=== PATIENT | male | born 1990 | race Caucasian/White ===

== ENCOUNTER 2021-02-09 02:43 | Observation (INO) | payer OTHER ==
[2021-02-09] MEDS ORDERED: Ondansetron PF 4 MG/2 ML Vial ONE ×2 (03:57→13:32)
[2021-02-09] MEDS ORDERED: Morphine 4 MG/ML VIAL ONE ×3 (03:57→09:48)
[2021-02-09 07:18] VITALS: BMI 30.3
[2021-02-09] MEDS ORDERED: Morphine 2 MG/ML VIAL SLOW IVP PRN (08:39)
[2021-02-09] MEDS ORDERED: Morphine 4 MG/ML VIAL SLOW IVP PRN (08:39)
[2021-02-09] MEDS ORDERED: Ondansetron PF 4 MG/2 ML Vial IVP PRN (08:40)
[2021-02-09] MEDS ORDERED: Acetaminophen 325 MG TAB PO PRN (08:40)
[2021-02-09] MEDS ORDERED: Ondansetron ODT 4 MG TAB PO PRN (08:40)
[2021-02-09] MEDS ORDERED: Piperacillin/Tazobactam 3.375 GM in Sodium Chloride 0.9% 100 ML IVPB SCH ×2 (11:45→17:00)
[2021-02-09] MEDS ORDERED: Ketorolac Tromethamine 30 MG/ML VIAL IVP SCH (11:45)
[2021-02-09] MEDS ORDERED: Sodium Chloride 0.9% 1,000 ML IV SCH (11:45)
[2021-02-09] MEDS ORDERED: Scopolamine 1.5 mg/72 hour Patch TOP SCH (12:00)
[2021-02-09] MEDS ORDERED: Piperacillin/Tazobactam 3.375 GM VIAL ONE (12:19)
[2021-02-09] MEDS ORDERED: Ketorolac Tromethamine 30 MG/ML VIAL ONE ×2 (12:19→13:32)
[2021-02-09] MEDS ORDERED: Fentanyl 100 MCG/2 ML VIAL ONE ×2 (12:32→14:05)
[2021-02-09] MEDS ORDERED: Midazolam HCl 2 mg/2 ml Vial ONE (12:32)
[2021-02-09] MEDS ORDERED: Nicotine 14 MG PATCH ONE (12:38)
[2021-02-09] MEDS ORDERED: SUGAMMADEX SODIUM 200 MG/2 ML VIAL ONE (12:40)
[2021-02-09] MEDS ORDERED: EPINEPHrine 1 MG/ML AMP ONE (12:41)
[2021-02-09] MEDS ORDERED: Bupivacaine PF 0.5% 30 ML VIAL ONE (12:41)
[2021-02-09] MEDS ORDERED: Succinylcholine 200 MG/10 ml SYRINGE FS ONE (13:32)
[2021-02-09] MEDS ORDERED: Rocuronium Bromide 10 MG/ML (10ML VIAL) ONE (13:32)
[2021-02-09] MEDS ORDERED: Lidocaine 2% PF 5 ML VIAL ONE (13:32)
[2021-02-09] MEDS ORDERED: PROPOFOL 200 MG/20 ML VIAL ONE (13:32)
[2021-02-09] MEDS ORDERED: Dexamethasone 20 MG/5 ML VIAL ONE (13:32)
[2021-02-09] MEDS ORDERED: diphenhydrAMINE 50 MG/ML VIAL ONE (13:32)
[2021-02-09] MEDS ORDERED: Scopolamine 1.5 mg/72 hour Patch ONE (13:44)
[2021-02-09] MEDS ORDERED: Nicotine 14 MG PATCH TD SCH (14:30)
[2021-02-09] MEDS ORDERED: HYDROcodone/Acetaminophen 5/325 mg Tablet ONE (16:08)
== END 2021-02-09 17:15 | disposition home or self-care (01) ==
LOC: ERS 02:43 → ERHOLD 03:30
PROVIDERS: ADMIT Student in an Organized Health Care Education/Training Program; ATTEND Student in an Organized Health Care Education/Training Program
PROC: 0DTJ4ZZ Resection of Appendix, Percutaneous Endoscopic Approach (ICD-10-PCS; principal; 2021-02-09)
DX: K35.30 Acute appendicitis with localized peritonitis, without perforation or gangrene (principal); K38.8 Other specified diseases of appendix; U07.1 COVID-19; F17.290 Nicotine dependence, other tobacco product, uncomplicated; G89.29 Other chronic pain; M54.9 Dorsalgia, unspecified; Z79.899 Other long term (current) drug therapy
CPT/HCPCS: 88304; 96374; 96375; 96376; G0378; J0171; J1100; J1200; J1885; J2001; J2250; J2270; J2405; J2543; J2704; J3010; J3490; S0020